=== PATIENT | male | born 1950 | race Caucasian/White ===

== ENCOUNTER 2023-07-01 07:41 | Day surgery (SDC) | payer MEDICARE, SELFPAY ==
[2023-06-18 13:21] VITALS: BMI 25.4
[2023-06-21 09:53] VITALS: BMI 24.9
[2023-07-01 08:54] VITALS: BP 115/79; PULSE 78; RESP 20; TEMP 36.3; O2SAT 100
--- NOTE | 2023-07-01 08:57 | PM.HPGS ---
History of Present Illness History of Present Illness Consent: Risks, benefits, and alternatives have been discussed and questions answered. Patient agrees to proceed with procedure. Chief complaint: Neoplasm Screening Narrative: Madhu Gil is a 73 year old male presents for screening colonoscopy. Patient's current weight appetite and bowel movements are normal. Patient is abdominal pain. He has had no bleeding. We history is significant 1 sister has colon polyps in brother has Crohn's disease. Most recent colonoscopy 2018 revealed diverticulosis and hemorrhoids, the patient presents today for screening exam. Review of Systems Review of Systems: Review of systems is noncontributory. [facility] Past Medical History Medical History BMI 24.0-24.9, adult Generalized osteoarthritis of multiple sites Nontraumatic rupture of long head of biceps tendon of right shoulder Osteoarthritis of left knee Osteoarthritis of right shoulder Prostate cancer Surgical History Surgical History H/O right wrist surgery History of hernia surgery History of prostate surgery History of right knee joint replacement (~2019) June 23, 2018 Family History Family History Sibling Family history of malignant neoplasm Father Malignant neoplasm of prostate, Onset Age: 86 Family history of congestive heart failure, Onset Age: 86 Mother Family history of lung cancer, Onset Age: 88 Social History Social History Smoking packs per day: 0.5 Smoking cigarettes per day: 10.0 Years smoked: 30 Smoking pack-years: 15.00 Smoking status: Former smoker Tobacco type: cigarettes Second hand tobacco smoke exposure: Yes Smoking end date: 06/14/09 Alcohol intake: current Alcohol use details: 3-4 beers at night Substance use: former Substance use type: former substance user and marijuana Do You Feel Safe in your Home?: Yes Lack of Transportation: No Lack of Food: Never True Current Housing: I Have Housing Concerned About Future Housing: No Difficulty Paying Gas/Electric Bills: No Difficulty Paying for Meds: No Currently Unemployed: No Education: Trade/Vocational Certificate Difficulty w/ Childcare or Family Care: No Living arrangements: with family Additional living arrangements comments: with Occupation/Education: retired Gender identity (if verbalized by the patient): Male Spiritual care concerns: No Meds Home Medications and Allergies Home Medications Medication Instructions Recorded Confirmed Type diclofenac sodium 75 mg 75 mg PO BID 04/27/23 07/01/23 History tablet,delayed release folic acid 1 mg tablet 1 mg PO DAILY 04/27/23 07/01/23 History methotrexate sodium 2.5 mg tablet 15 mg PO .COMPLEX 04/27/23 07/01/23 History omeprazole 40 mg capsule,delayed 40 mg PO DAILY 04/27/23 07/01/23 History release temazepam 15 mg capsule 15 mg PO QHS PRN sleep #30 caps 06/17/23 07/01/23 Rx sodium,potassium,mag sulfates 17.5 See Rx Instructions PO .COMPLEX 06/18/23 07/01/23 Rx gram-3.13 gram-1.6 gram oral soln #354 mL (Suprep Bowel Prep Kit) multivitamin (Daily Multi-Vitamin 1 tablet PO DAILY 06/28/23 07/01/23 History tablet) Allergies Allergy/AdvReac Type Severity Reaction Status Date / Time tetracycline Allergy Unknown rash Verified 07/01/23 08:53 Exam Narrative: Physical exam reveals patient to be alert. Vital signs stable. HEENT exam is unremarkable. Patient is anicteric. Lungs are clear to auscultation and percussion is without murmur or extra sounds. Abdomen bowel sounds are present soft nontender with no organomegaly. Digital external rectal exam normal. Assessment and Plan Assessment and plan (1) Colon cancer
[2023-07-01] MEDS: LACTATED RINGERS 1,000 ML 150 ML IV CONT (09:02)
[2023-07-01] MEDS: SIMETHICONE ORAL SUSPENSION 20 MG/0.3 ML 30 ML BOTTLE 0.6 ML IRRIGATION (09:49)
[2023-07-01 09:53] VITALS: BP 120/69; PULSE 90; RESP 16; O2SAT 96
[2023-07-01 10:03] VITALS: BP 123/79; PULSE 78; RESP 16; O2SAT 97
--- NOTE | 2023-07-01 10:03 | WPDANESPN ---
Anes - Prog Note Post-Op Date/Time: 07/01/23 10:03 Cardiovascular status: normal Respiratory status: normal Airway patency: baseline Mental status: baseline Post-Op hydration status: normal Vital Signs: Last Vital Signs Temp 36.3 C L 07/01/23 08:54 Pulse 90 07/01/23 09:53 Resp 16 07/01/23 09:53 BP 120/69 07/01/23 09:53 Pulse Ox 96 07/01/23 09:53 O2 Del Method Room Air 07/01/23 09:53 Pain Score (VAS): 0 I/O: Intake & Output 06/30/23 07/01/23 07/01/23 23:59 07:59 15:59 Intake Total 600 Balance 600 Patient Feedback: Patient satisfied with anesthetic care.
[2023-07-01 10:13] VITALS: BP 139/82; PULSE 82; RESP 16; O2SAT 99
== END 2023-07-01 10:24 | disposition home or self-care (01) ==
PROVIDERS: PCP Emergency Medicine; Visit Provider Internal Medicine Gastroenterology
PROC: 0DJD8ZZ Inspection of Lower Intestinal Tract, Via Natural or Artificial Opening Endoscopic (ICD-10-PCS; CPT 45378; principal; 2023-07-01 09:30)
DX: Z12.11 Encounter for screening for malignant neoplasm of colon (principal); K57.30 Diverticulosis of large intestine without perforation or abscess without bleeding; K64.8 Other hemorrhoids
CPT/HCPCS: 45378

== ENCOUNTER 2024-04-04 10:57 | Outpatient (CLI) | payer MEDICARE, SELFPAY ==
--- NOTE | ~2024-04-04 | XR_ITS ---
[id number] Ordering provider: Farhad Clemente MD History: . LEFT SIDED NECK PAIN X 4 DAYS. NKI . Comparison: None. FINDINGS: VERTEBRAL BODIES: Normal height and alignment. No visible fracture or subluxation. The dens is intact . DISK SPACES: Narrowing of the level C3-C4 and C6-C7. Multilevel facet joint disease. Multilevel uncov ertebral joint osteoarthritic changes. PARASPINOUS SOFT TISSUES: No prevertebral soft tissue swelling. IMPRESSION: No acute osseous abnormality cervical spine. Multilevel degenerative disc disease. Multilevel facet joint disease. Reviewed, dictated and finalized at location A.
== END 2024-04-04 10:58 | disposition home or self-care (01) ==
PROVIDERS: PCP Emergency Medicine; Visit Provider Emergency Medicine
DX: M50.30 Other cervical disc degeneration, unspecified cervical region (principal)
CPT/HCPCS: 72040

== ENCOUNTER 2025-03-15 11:41 | Outpatient (CLI) | payer MEDICARE, SELFPAY ==
--- NOTE | ~2025-03-15 | XR_ITS ---
EXAMINATION: XR hip BI wo pelvis, 03/15/2025 11:50 CDT HISTORY: HIP PAIN COMPARISON: No comparisons available. Findings: No acute fracture or malalignment. Moderate degenerative changes Soft tissues unremarkable. Impression: No acute fracture or malalignment. Reviewed, dictated and finalized at location P. Impression: No acute fracture or malalignment.
--- OUTSIDE RECORDS SUMMARY | 2025-03-15 12:01 | XMS_ITS | Clinical Summary ---
Author Organization [facility] Address [address] [place] [address] Care Team Providers Care Edi Specialist Name Role Phone Farhad Clemente MD Primary Care Provider [phone] Source Comments [facility],non-owned Affiliates and Associated Physician Practices is amultiple site organization consisting of ambulatory clinics and hospital sitesin [place], [place], [place] and [place]. This disclosure is being madepursuant to the Care Everywhere program and may not contain all information available regarding this patient. 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 Gender Identity Not on file Sexual Orientation Not on file Plan of Treatment Health Maintenance Due Date Last Done Comments COLOGUARD (AGES 45-75) - COL ON CA SCREENING 1951 COLON MONITORING 1951 COLONOSCOPY - COLON CA SCREENING 1951 CT COLONOGRAPHY - COLON CA SCREENING 1950 Colorectal Cancer Screening 1950 FIT - COLON CA SCREENING 1951 FLEX SIG - COLON CA SCREENING 1951 LIPID TESTING 1950 MEDICARE AWV 12 MONTHS 1950 HEPATITIS C SCREENING 04/23/1969 DTAP/TDAP/TD VACCINES (1 - Tdap) 1970 PNEUMOCOCCAL VACCINE 50+ (1 of 1 - PCV) 2001 ZOSTER VACCINE (1 of 2) 2001 DEPRESSION SCREENING 06/14/2024 COVID-19 VACCINE (1 - 2023-2 5 season) 2025 INFLUENZA VACCINE (#1) 2025 Respiratory Syncytial Virus (RSV) Vaccine Pt: or over 60 yrs (1 - 1-dose 75+ series) 2026 HEPATITIS B VACCINE Aged Out No longe r eligible based on patient's age to complete this topic HIB VACCINE Aged Out No longer eligi ble based on patient's age to complete this topic HPV VACCINE Aged Out No longer eligi ble based on patient's age to complete this topic MENINGOCOCCAL (Group B) VACC INE SHARED DECISION-MAKING Aged Out No longer eligibl e based on patient's age to complete this topic MENINGOCOCCAL GROUPS A/C/Y/W VACCINE Aged Out No longer eligible b ased on patient's age to complete this topic Insurance [facility] Care Teams Edi Specialist Relationship Specialty Start Date End Date Farhad Clemente MD [address] [place] [address] [address] [place] [address] PCP - General 04/20/18
== END 2025-03-15 11:42 | disposition home or self-care (01) ==
PROVIDERS: PCP Emergency Medicine; Visit Provider Nurse Practitioner
DX: M16.0 Bilateral primary osteoarthritis of hip (principal)
CPT/HCPCS: 73521